=== PATIENT | male | born 1960 | race Caucasian/White ===

== ENCOUNTER 2020-07-06 10:21 | Observation (INO) ==
[2020-07-06] MEDS ORDERED: 0.9 % Sodium Chloride 1,000 ML IV ONE ×2 (10:33→12:05)
[2020-07-06 10:54] LABS: Basophils # 0.1 K/mcL (0.0-0.2); Basophils % 0.6 %; Eosinophils # 0.1 K/mcL (0.0-0.6); Eosinophils % 0.7 %; Hematocrit 41.7 % (37.5-50.1); Hemoglobin 14.7 g/dL (12.9-16.9); Immature Granulocytes % 0.3 % (0-4); Lymphocytes # 1.3 K/mcL (0.6-4.6); Lymphocytes % 12.6 %; Mean Corpuscular HGB Conc 35.3 g/dL (31.6-35.5); Mean Corpuscular Hemoglobin 28.8 pg (28.0-33.3); Mean Corpuscular Volume 81.8 fL (83.0-100.0); Monocytes # 0.5 K/mcL (0.0-1.3); Monocytes % 5.4 %; Platelet Count 246 K/mcL (140-400); Red Cell Distribution Width 13.6 % (11.5-14.5); Segmented Neutrophils % 80.4 %; White Blood Count 9.9 K/mcL (4.3-11.1)
[2020-07-06 10:59] LABS: Prothrombin Time 11.9 Seconds (9.4-12.1)
[2020-07-06 11:02] LABS: Activated Partial Thrombo Time 28.1 Seconds (26.0-36.0)
[2020-07-06 11:05] LABS: VBG HCO3 36 mEq/L (21-27); VBG PCO2 52 mmHg (41-51); VBG PH 7.45 pH Units (7.32-7.42); VBG PO2 59 mmHg (25-50)
[2020-07-06] MEDS ORDERED: Insulin Human Regular 10 UNIT in 0.9 % Sodium Chloride 10 ML IV ONE (11:10)
[2020-07-06 11:11] LABS: Troponin I < 0.03 ng/mL (< 0.04)
[2020-07-06 11:34] LABS: Bilirubin,Urine Negative (Negative); Blood,Urine Trace-intact (Negative); Clarity,Urine Clear (Clear); Glucose,Urine (UA) >=1000 mg/dL (Normal); Ketones,Urine 15 mg/dL (Negative); Leukocyte Esterase,Urine Negative (Negative); Nitrite,Urine Negative (Negative); PH,Urine 5.5 pH Units (5.0-8.0); Protein,Urine Negative (Neg-Trace); Urobilinogen,Urine Normal (Normal)
[2020-07-06 11:35] LABS: Color,Urine Light Yellow (Yellow)
[2020-07-06 11:38] LABS: Bacteria,Urine Few per hpf (None-Few); RBC,Urine 0-3 per hpf (0-3)
[2020-07-06 11:39] LABS: WBC,Urine 0-3 per hpf (0-3)
[2020-07-06 11:47] LABS: Alanine Aminotransferase 9 Units/L (7-52); Albumin 4.4 g/dL (3.5-5.7); Albumin/Globulin Ratio 1.5 (1.1-2.2); Alkaline Phosphatase 125 Units/L (34-104); Amylase 20 Units/L (29-103); Aspartate Amino Transferase 10 Units/L (13-39); BUN/Creatinine Ratio 15 (6-26); Bilirubin,Total 1.1 mg/dL (0.3-1.0); Blood Urea Nitrogen 19 mg/dL (6-20); Calcium 9.7 mg/dL (8.6-10.3); Carbon Dioxide 36 mEq/L (23-29); Chloride 73 mEq/L (98-107); Globulin 2.9 g/dL (2.4-3.5); Glucose 758 mg/dL (70-105); Lipase 24 Units/L (11-82); Magnesium 1.9 mg/dL (1.6-2.6); Osmolality,Calculated 303 (280-300); Phosphorous 4.3 mg/dL (2.7-4.5); Potassium 2.4 mEq/L (3.5-5.1); Sodium 127 mEq/L (136-145); Total Protein 7.3 g/dL (6.4-8.9); eGFR For African Americans > 60 (> 60); eGFR For Non-African Americans 59 (> 60)
[2020-07-06] MEDS ORDERED: *HR* Dextrose 50 % in Water (Vial) 50 ML VIAL IVP PRN (12:07)
[2020-07-06] MEDS ORDERED: Naloxone 0.4 MG/ML INJ IVP PRN (12:12)
[2020-07-06] MEDS ORDERED: Mag Hydrox/Al Hydrox/Simeth 30 ML UDC PO PRN (12:12)
[2020-07-06] MEDS ORDERED: Acetaminophen 325 MG TABLET PO PRN (12:12)
[2020-07-06] MEDS ORDERED: Ondansetron 4 MG/2 ML VIAL IVP PRN (12:12)
[2020-07-06] MEDS ORDERED: Insulin Human Regular 100 UNIT in 0.9 % Sodium Chloride 100 ML IVC SCH (12:15)
[2020-07-06] MEDS ORDERED: 0.9 % Sodium Chloride 1,000 ML IVC SCH (12:15)
[2020-07-06] MEDS ORDERED: 0.9 % Sodium Chloride 1,000 ML IVC ONE (12:30)
[2020-07-06 15:27] LABS: BUN/Creatinine Ratio 15 (6-26); Blood Urea Nitrogen 16 mg/dL (6-20); Calcium 8.8 mg/dL (8.6-10.3); Carbon Dioxide 37 mEq/L (23-29); Chloride 86 mEq/L (98-107); Glucose 315 mg/dL (70-105); Osmolality,Calculated 293 (280-300); Potassium 2.5 mEq/L (3.5-5.1); Sodium 135 mEq/L (136-145); eGFR For African Americans > 60 (> 60); eGFR For Non-African Americans > 60 (> 60)
[2020-07-06] MEDS ORDERED: Insulin DETEMIR 100 UNIT/ML per UNIT SUBQ ONE ×2 (17:00→21:00)
[2020-07-06] MEDS: 0.9 % Sodium Chloride w KCl 20 MEQ/1,000 ML MLS IVC SCH (18:48)
[2020-07-06] MEDS ORDERED: Nitroglycerin 0.4 MG TAB.SUBL SL PRN (18:55)
[2020-07-06 19:26] LABS: Estimated Average Glucose 470 mg/dl
[2020-07-06] MEDS: Insulin LISPRO 300 UNITS/3 ML VIAL SUBQ SCH (21:01)
[2020-07-06] MEDS: lisinopriL 20 MG TABLET PO SCH (21:06)
[2020-07-06] MEDS: Metoprolol 100 MG TABLET PO SCH (21:06)
[2020-07-06 21:23] LABS: BUN/Creatinine Ratio 13 (6-26); Blood Urea Nitrogen 16 mg/dL (6-20); Calcium 8.4 mg/dL (8.6-10.3); Carbon Dioxide 33 mEq/L (23-29); Chloride 91 mEq/L (98-107); Glucose 306 mg/dL (70-105); Osmolality,Calculated 295 (280-300); Potassium 3.1 mEq/L (3.5-5.1); Sodium 136 mEq/L (136-145); eGFR For African Americans > 60 (> 60); eGFR For Non-African Americans > 60 (> 60)
[2020-07-07] MEDS: Insulin LISPRO 300 UNITS/3 ML VIAL SUBQ SCH ×6 (00:10→20:50)
[2020-07-07] MEDS: 0.9 % Sodium Chloride w KCl 20 MEQ/1,000 ML MLS IVC SCH ×2 (02:57→10:37)
[2020-07-07 04:19] LABS: Hematocrit 33.9 % (37.5-50.1); Hemoglobin 11.6 g/dL (12.9-16.9); Mean Corpuscular HGB Conc 34.2 g/dL (31.6-35.5); Mean Corpuscular Hemoglobin 28.9 pg (28.0-33.3); Mean Corpuscular Volume 84.5 fL (83.0-100.0); Mean Platelet Volume 12.8 fL (9.4-12.4); Platelet Count 192 K/mcL (140-400); Red Blood Count 4.01 M/mcL (4.19-5.50); Red Cell Distribution Width 14.1 % (11.5-14.5); White Blood Count 7.1 K/mcL (4.3-11.1)
[2020-07-07 04:46] LABS: Alkaline Phosphatase 54 Units/L (34-104); BUN/Creatinine Ratio 16 (6-26); Blood Urea Nitrogen 14 mg/dL (6-20); Carbon Dioxide 34 mEq/L (23-29); Chloride 97 mEq/L (98-107); Glucose 124 mg/dL (70-105); Magnesium 1.8 mg/dL (1.6-2.6); Osmolality,Calculated 288 (280-300); Phosphorous 1.9 mg/dL (2.7-4.5); Potassium 2.7 mEq/L (3.5-5.1); Sodium 138 mEq/L (136-145); eGFR For African Americans > 60 (> 60); eGFR For Non-African Americans > 60 (> 60)
[2020-07-07 05:01] LABS: Alanine Aminotransferase 8 Units/L (7-52); Albumin 3.4 g/dL (3.5-5.7); Albumin/Globulin Ratio 1.6 (1.1-2.2); Aspartate Amino Transferase 10 Units/L (13-39); Bilirubin,Total 0.4 mg/dL (0.3-1.0); Calcium 8.2 mg/dL (8.6-10.3); Chol/HDL Ratio 4.2 (0-4.9); Cholesterol 101 mg/dL (< 200); Globulin 2.1 g/dL (2.4-3.5); HDL Cholesterol 24 mg/dL (40-59); LDL Cholesterol,Calculated 26 mg/dL (< 100); Total Protein 5.5 g/dL (6.4-8.9); Triglycerides 256 mg/dL (< 150)
[2020-07-07] MEDS: *HR* Enoxaparin 40 MG/0.4 ML SYRINGE SQ SCH (05:23)
[2020-07-07] MEDS: *HR* HYDROcodone/Acet 5/325 mg TABLET PO PRN (07:48)
[2020-07-07] MEDS ORDERED: amLODIPine 5 MG TABLET PO SCH (09:00)
[2020-07-07] MEDS ORDERED: Insulin DETEMIR 100 UNIT/ML X5UNITS SUBQ SCH (09:00)
[2020-07-07] MEDS: Metoprolol 100 MG TABLET PO SCH ×2 (09:08→20:50)
[2020-07-07] MEDS: lisinopriL 20 MG TABLET PO SCH (09:09)
[2020-07-07] MEDS: (Dapagliflozin Propanediol [Farxiga] 10 MG Tablet) PO SCH ×2 (10:34→14:33)
[2020-07-07] MEDS ORDERED: Perflutren Lipid Microsphere 1.3 ML in 0.9 % Sodium Chloride 8.7 ML IVP PRN (15:13)
[2020-07-07 16:19] LABS: BUN/Creatinine Ratio 16 (6-26); Blood Urea Nitrogen 13 mg/dL (6-20); Calcium 8.1 mg/dL (8.6-10.3); Carbon Dioxide 32 mEq/L (23-29); Chloride 97 mEq/L (98-107); Glucose 178 mg/dL (70-105); Osmolality,Calculated 285 (280-300); Potassium 3.3 mEq/L (3.5-5.1); Sodium 135 mEq/L (136-145); eGFR For African Americans > 60 (> 60); eGFR For Non-African Americans > 60 (> 60)
[2020-07-07] MEDS: *HR* Metformin 500 MG TABLET PO SCH (17:22)
[2020-07-07] MEDS: Insulin DETEMIR 100 UNIT/ML X5UNITS SUBQ SCH (20:50)
[2020-07-08] MEDS: Insulin LISPRO 300 UNITS/3 ML VIAL SUBQ SCH ×5 (00:06→17:03)
[2020-07-08] MEDS: *HR* Enoxaparin 40 MG/0.4 ML SYRINGE SQ SCH (05:12)
[2020-07-08 05:45] LABS: BUN/Creatinine Ratio 14 (6-26); Blood Urea Nitrogen 11 mg/dL (6-20); Calcium 8.1 mg/dL (8.6-10.3); Carbon Dioxide 32 mEq/L (23-29); Chloride 100 mEq/L (98-107); Glucose 129 mg/dL (70-105); Osmolality,Calculated 289 (280-300); Potassium 2.8 mEq/L (3.5-5.1); Sodium 139 mEq/L (136-145); eGFR For African Americans > 60 (> 60); eGFR For Non-African Americans > 60 (> 60)
[2020-07-08 05:59] LABS: Magnesium 1.6 mg/dL (1.6-2.6)
[2020-07-08] MEDS ORDERED: *HR* Pioglitazone 30 MG TABLET PO SCH (09:00)
[2020-07-08] MEDS ORDERED: lisinopriL 20 MG TABLET PO SCH (09:00)
[2020-07-08] MEDS: *HR* Metformin 500 MG TABLET PO SCH ×2 (09:33→17:03)
[2020-07-08] MEDS: Metoprolol 100 MG TABLET PO SCH (09:33)
[2020-07-08] MEDS: Insulin DETEMIR 100 UNIT/ML X5UNITS SUBQ SCH (09:34)
[2020-07-08] MEDS: (Dapagliflozin Propanediol [Farxiga] 10 MG Tablet) PO SCH (09:34)
[2020-07-08] MEDS: *HR* HYDROcodone/Acet 5/325 mg TABLET PO PRN (10:29)
[2020-07-08 16:04] LABS: BUN/Creatinine Ratio 14 (6-26); Blood Urea Nitrogen 13 mg/dL (6-20); Calcium 8.4 mg/dL (8.6-10.3); Carbon Dioxide 28 mEq/L (23-29); Chloride 100 mEq/L (98-107); Glucose 148 mg/dL (70-105); Osmolality,Calculated 285 (280-300); Potassium 4.3 mEq/L (3.5-5.1); Sodium 136 mEq/L (136-145); eGFR For African Americans > 60 (> 60); eGFR For Non-African Americans > 60 (> 60)
[2020-07-08 16:37] VITALS: BP 113/74
== END 2020-07-08 17:10 | disposition home or self-care (01) ==
LOC: EMEROOGRE 10:21 → INPGRE 10:21
PROVIDERS: ADMIT Family Medicine; ATTEND Family Medicine

== ENCOUNTER 2020-07-25 14:45 | Observation (INO) ==
[2020-07-25] MEDS ORDERED: Ipratropium/Albuterol Neb 3 ML IH ONE (15:17)
[2020-07-25] MEDS ORDERED: Furosemide 40 MG/4 ML VIAL IVP ONE (15:17)
[2020-07-25 15:38] LABS: Basophils % 0.5 %; Eosinophils # 0.1 K/mcL (0.0-0.6); Hematocrit 41.6 % (37.5-50.1); Hemoglobin 13.2 g/dL (12.9-16.9); Immature Granulocytes % 0.4 % (0-4); Lymphocytes # 0.9 K/mcL (0.6-4.6); Lymphocytes % 10.5 %; Mean Corpuscular HGB Conc 31.7 g/dL (31.6-35.5); Mean Corpuscular Hemoglobin 28.1 pg (28.0-33.3); Mean Corpuscular Volume 88.5 fL (83.0-100.0); Mean Platelet Volume 11.1 fL (9.4-12.4); Monocytes # 0.5 K/mcL (0.0-1.3); Monocytes % 6.2 %; Neutrophils # 6.8 K/mcL (1.6-8.9); Platelet Count 204 K/mcL (140-400); Red Cell Distribution Width 14.4 % (11.5-14.5); Segmented Neutrophils % 81.4 %; White Blood Count 8.3 K/mcL (4.3-11.1)
[2020-07-25 15:38] LABS: VBG HCO3 25 mEq/L (21-27); VBG PCO2 38 mmHg (41-51); VBG PH 7.43 pH Units (7.32-7.42); VBG PO2 47 mmHg (25-50)
[2020-07-25 15:39] LABS: INR 1.2; Prothrombin Time 13.8 Seconds (9.4-12.1)
[2020-07-25 15:49] LABS: Alanine Aminotransferase 13 Units/L (7-52); Albumin 4.7 g/dL (3.5-5.7); Albumin/Globulin Ratio 1.8 (1.1-2.2); Alkaline Phosphatase 64 Units/L (34-104); Aspartate Amino Transferase 14 Units/L (13-39); BUN/Creatinine Ratio 11 (6-26); Bilirubin,Direct 0.2 mg/dL (0.0-0.2); Bilirubin,Indirect 0.6 mg/dL (0.0-1.0); Bilirubin,Total 0.8 mg/dL (0.3-1.0); Blood Urea Nitrogen 11 mg/dL (8-23); Carbon Dioxide 26 mEq/L (23-29); Chloride 96 mEq/L (98-107); Globulin 2.6 g/dL (2.4-3.5); Glucose 198 mg/dL (70-105); Osmolality,Calculated 287 (280-300); Potassium 3.5 mEq/L (3.5-5.1); Sodium 136 mEq/L (136-145); Total Protein 7.3 g/dL (6.4-8.9); Troponin I < 0.03 ng/mL (< 0.04); eGFR For African Americans > 60 (> 60); eGFR For Non-African Americans > 60 (> 60)
[2020-07-25] MEDS ORDERED: *HR* HYDROcodone/Acet 5/325 mg TABLET PO ONE (16:09)
[2020-07-25] MEDS ORDERED: levoFLOXacin 750 MG/150 ML 750 MG/150 ML BAG IVPB ONE (16:16)
[2020-07-25 16:42] LABS: Bilirubin,Urine Negative (Negative); Blood,Urine Negative (Negative); Clarity,Urine Clear (Clear); Color,Urine Yellow (Yellow); Glucose,Urine (UA) >=1000 mg/dL (Normal); Ketones,Urine Negative (Negative); Leukocyte Esterase,Urine Negative (Negative); Nitrite,Urine Negative (Negative); PH,Urine 5.5 pH Units (5.0-8.0); Protein,Urine Negative (Neg-Trace); Urobilinogen,Urine Normal (Normal)
[2020-07-25 16:43] LABS: RBC,Urine 0-3 per hpf (0-3)
[2020-07-25 16:44] LABS: WBC,Urine 0-3 per hpf (0-3)
[2020-07-25] MEDS ORDERED: Ondansetron ODT 4 MG TAB.RAPDIS SL PRN ×2 (17:14→17:55)
[2020-07-25] MEDS ORDERED: *HR* HYDROcodone/Acet 5/325 mg TABLET PO PRN ×3 (17:14→17:55)
[2020-07-25] MEDS ORDERED: Melatonin 3 MG TABLET PO PRN (17:14)
[2020-07-25] MEDS ORDERED: Mag Hydrox/Al Hydrox/Simeth 30 ML UDC PO PRN ×3 (17:14→17:55)
[2020-07-25] MEDS ORDERED: Ondansetron 4 MG/2 ML VIAL IVP PRN ×3 (17:14→17:55)
[2020-07-25] MEDS ORDERED: Acetaminophen 325 MG TABLET PO PRN ×2 (17:14→17:55)
[2020-07-25] MEDS ORDERED: Naloxone 0.4 MG/ML INJ IVP PRN ×3 (17:14→17:55)
[2020-07-25] MEDS ORDERED: MOM Conc 10 ML UD.LIQ PO PRN ×2 (17:14→17:55)
[2020-07-25] MEDS ORDERED: D5% in Water 1,000 ML IVC PRN ×2 (17:22→17:55)
[2020-07-25] MEDS ORDERED: Dextrose Gel 15 GM/37.5 ML TUBE PO PRN ×4 (17:22→17:55)
[2020-07-25] MEDS ORDERED: *HR* Dextrose 50 % in Water (Vial) 50 ML VIAL IVP PRN ×2 (17:22→17:55)
[2020-07-25] MEDS ORDERED: Perflutren Lipid Microsphere 1.3 ML in 0.9 % Sodium Chloride 8.7 ML IVP PRN ×2 (17:39→17:55)
[2020-07-25] MEDS ORDERED: Insulin LISPRO 300 UNITS/3 ML VIAL SUBQ SCH (21:00)
[2020-07-25] MEDS: Ipratropium/Albuterol Neb 3 ML IH SCH (21:43)
[2020-07-25] MEDS ORDERED: Ipratropium/Albuterol Neb 3 ML IH SCH (22:00)
[2020-07-25] MEDS: Metoprolol 100 MG TABLET PO SCH (22:44)
[2020-07-25] MEDS: Insulin LISPRO 300 UNITS/3 ML VIAL SUBQ SCH (22:44)
[2020-07-25] MEDS: Melatonin 3 MG TABLET PO PRN (22:44)
[2020-07-25] MEDS: Insulin DETEMIR 100 UNIT/ML X5UNITS SUBQ SCH (22:54)
[2020-07-25] MEDS: Insulin DETEMIR 100 UNIT/ML per UNIT SUBQ SCH (22:55)
[2020-07-26] MEDS: Ipratropium/Albuterol Neb 3 ML IH SCH ×4 (04:10→21:55)
[2020-07-26 05:05] LABS: Hematocrit 36.8 % (37.5-50.1); Hemoglobin 11.7 g/dL (12.9-16.9); Mean Corpuscular HGB Conc 31.8 g/dL (31.6-35.5); Mean Corpuscular Hemoglobin 28.1 pg (28.0-33.3); Mean Corpuscular Volume 88.5 fL (83.0-100.0); Mean Platelet Volume 11.9 fL (9.4-12.4); Platelet Count 173 K/mcL (140-400); Red Blood Count 4.16 M/mcL (4.19-5.50); Red Cell Distribution Width 14.4 % (11.5-14.5); White Blood Count 6.2 K/mcL (4.3-11.1)
[2020-07-26 05:22] LABS: Troponin I < 0.03 ng/mL (< 0.04)
[2020-07-26 05:33] LABS: Alanine Aminotransferase 9 Units/L (7-52); Albumin 3.8 g/dL (3.5-5.7); Albumin/Globulin Ratio 1.8 (1.1-2.2); Alkaline Phosphatase 47 Units/L (34-104); Aspartate Amino Transferase 11 Units/L (13-39); BUN/Creatinine Ratio 20 (6-26); Bilirubin,Total 0.6 mg/dL (0.3-1.0); Blood Urea Nitrogen 14 mg/dL (8-23); Calcium 9.2 mg/dL (8.6-10.3); Carbon Dioxide 31 mEq/L (23-29); Chloride 99 mEq/L (98-107); Globulin 2.1 g/dL (2.4-3.5); Glucose 130 mg/dL (70-105); Magnesium 1.4 mg/dL (1.6-2.6); Osmolality,Calculated 292 (280-300); Phosphorous 5.1 mg/dL (2.7-4.5); Sodium 140 mEq/L (136-145); Total Protein 5.9 g/dL (6.4-8.9); eGFR For African Americans > 60 (> 60); eGFR For Non-African Americans > 60 (> 60)
[2020-07-26] MEDS: *HR* Enoxaparin 40 MG/0.4 ML SYRINGE SQ SCH (05:57)
[2020-07-26] MEDS ORDERED: Furosemide 40 MG/4 ML VIAL IVP ONE ×3 (06:00→09:00)
[2020-07-26] MEDS ORDERED: *HR* Enoxaparin 40 MG/0.4 ML SYRINGE SQ SCH ×2 (06:00→07:00)
[2020-07-26] MEDS ORDERED: Insulin LISPRO 300 UNITS/3 ML VIAL SUBQ SCH ×2 (07:30)
[2020-07-26] MEDS: lisinopriL 20 MG TABLET PO SCH (08:03)
[2020-07-26] MEDS: Metoprolol 100 MG TABLET PO SCH ×2 (08:03→20:56)
[2020-07-26] MEDS: amLODIPine 5 MG TABLET PO SCH (08:04)
[2020-07-26] MEDS: *HR* Metformin 500 MG TABLET PO SCH ×2 (08:04→18:15)
[2020-07-26] MEDS: *HR* Pioglitazone 30 MG TABLET PO SCH (08:04)
[2020-07-26] MEDS: (Dapagliflozin Propanediol [Farxiga] 10 MG Tablet) PO SCH (08:06)
[2020-07-26] MEDS: Insulin DETEMIR 100 UNIT/ML X5UNITS SUBQ SCH ×2 (08:06→21:02)
[2020-07-26] MEDS ORDERED: levoFLOXacin 750 MG/150 ML 750 MG/150 ML BAG IVPB SCH ×3 (09:00→16:00)
[2020-07-26] MEDS: Insulin DETEMIR 100 UNIT/ML per UNIT SUBQ SCH (11:18)
[2020-07-26] MEDS: Insulin LISPRO 300 UNITS/3 ML VIAL SUBQ SCH ×3 (12:33→20:55)
[2020-07-26] MEDS: Furosemide 40 MG/4 ML VIAL IVP SCH (18:16)
[2020-07-26 18:32] LABS: Estimated Average Glucose 324 mg/dl; Hemoglobin A1C 12.9 %
[2020-07-26] MEDS: Melatonin 3 MG TABLET PO PRN (20:56)
[2020-07-27] MEDS: Ipratropium/Albuterol Neb 3 ML IH SCH ×2 (04:03→10:38)
[2020-07-27] MEDS: *HR* Enoxaparin 40 MG/0.4 ML SYRINGE SQ SCH (04:41)
[2020-07-27 05:01] LABS: Hematocrit 38.4 % (37.5-50.1); Hemoglobin 11.9 g/dL (12.9-16.9); Mean Corpuscular Hemoglobin 27.9 pg (28.0-33.3); Mean Corpuscular Volume 89.9 fL (83.0-100.0); Mean Platelet Volume 11.7 fL (9.4-12.4); Platelet Count 187 K/mcL (140-400); Red Blood Count 4.27 M/mcL (4.19-5.50); Red Cell Distribution Width 14.6 % (11.5-14.5)
[2020-07-27 05:14] LABS: BUN/Creatinine Ratio 24 (6-26); Blood Urea Nitrogen 17 mg/dL (8-23); Calcium 9.3 mg/dL (8.6-10.3); Carbon Dioxide 34 mEq/L (23-29); Chloride 99 mEq/L (98-107); Glucose 155 mg/dL (70-105); Magnesium 1.7 mg/dL (1.6-2.6); Osmolality,Calculated 297 (280-300); Potassium 3.3 mEq/L (3.5-5.1); Sodium 141 mEq/L (136-145); eGFR For African Americans > 60 (> 60); eGFR For Non-African Americans > 60 (> 60)
[2020-07-27] MEDS: Furosemide 40 MG/4 ML VIAL IVP SCH (08:08)
[2020-07-27] MEDS: *HR* Metformin 500 MG TABLET PO SCH (08:09)
[2020-07-27] MEDS: *HR* Pioglitazone 30 MG TABLET PO SCH (08:09)
[2020-07-27] MEDS: lisinopriL 20 MG TABLET PO SCH (08:09)
[2020-07-27] MEDS: Metoprolol 100 MG TABLET PO SCH (08:09)
[2020-07-27] MEDS: amLODIPine 5 MG TABLET PO SCH (08:09)
[2020-07-27] MEDS: (Dapagliflozin Propanediol [Farxiga] 10 MG Tablet) PO SCH (08:10)
[2020-07-27] MEDS: Insulin LISPRO 300 UNITS/3 ML VIAL SUBQ SCH ×2 (08:11→11:18)
[2020-07-27] MEDS: Insulin DETEMIR 100 UNIT/ML X5UNITS SUBQ SCH (09:52)
[2020-07-27 15:05] VITALS: BP 123/71
== END 2020-07-27 16:09 | disposition home or self-care (01) ==
LOC: EMEROOGRE 14:45 → INPGRE 14:45
PROVIDERS: ADMIT Family Medicine; ATTEND Family Medicine